=== PATIENT | female | born 1940 | race Caucasian/White ===

== ENCOUNTER 2017-09-09 07:26 | Inpatient (IN) ==
--- NOTE | 2017-09-09 07:36 | History & Physical Report ---
Date of Encounter: 09/09/17 Time of Encounter: 07:36 24 Hour HP Update - Instructions Instructions: If the History and Physical is less than 30 days old and was completed prior to A.M. admission and or procedure and has NOT been updated on calendar day of procedure please complete this update prior to performing procedure. - Update Patient reports changes in Medical Condition: No Changes in examination, assessment, or condition: No Changes in Medication: No Preop tests/diagnostics Reviewed: Yes Surgery Remains Indicated: Yes Consent for Planned Operative Procedure(s) Verified: Yes - Pre-Operative Checklist Preoperative Checklist Indicated: No Prophylactic Antibiotic Ordered: Yes Is VTE Prophylaxis Indicated?: Yes
--- NOTE | 2017-09-09 07:37 | Discharge Summary ---
Date of Encounter: 09/11/17 Time of Encounter: 07:03 - Discharge Diagnosis (1) Arthritis of right knee Priority: Primary Status: Chronic (2) Status post total right knee replacement Priority: Primary Status: Acute (3) Hypertension Priority: Secondary Status: Chronic Qualifiers: Hypertension type: unspecified Qualified Code(s): I10 - Essential (primary ) hypertension (4) Hyperlipidemia Priority: Secondary Status: Chronic Qualifiers: Hyperlipidemia type: unspecified Qualified Code(s): E78.5 - Hyperlipidemia , unspecified (5) Diabetes type 2, controlled Priority: Secondary Status: Chronic Qualifiers: Diabetes mellitus complication status: with unspecified complications Diabetes mellitus senior care insulin use: unspecified vermin exterminator insulin use status Qualified Code(s): E11.8 - Type 2 diabetes mellitus with unspecified complications (6) Obesity (BMI 30.0-34.9) Priority: Secondary Status: Chronic - Discharge Medications Prescriptions: Aspirin Enteric Coated [Aspirin EC] 325 mg PO BID #20 tablet. OxyCODONE Immed Rel [Roxicodone 5 MG] 5 mg PO Q4HR PRN #24 tablet PRN Reason: Pain Home Medications: Aspirin Enteric Coated [Aspirin EC] 325 mg PO BID #20 tablet. 09/09/17 [Rx] Cholecalciferol (Vitamin D3) [Vitamin D3] 10,000 unit PO SA 09/09/17 [History] Escitalopram [Lexapro] 10 mg PO DAILY 09/09/17 [History] OxyCODONE Immed Rel [Roxicodone 5 MG] 5 mg PO Q4HR PRN #24 tablet 09/09/17 [Rx] Simvastatin [Zocor] 80 mg PO HS 09/09/17 [History] Tramadol HCl [Ultram] 50 mg PO BID PRN 09/09/17 [History] Allergies/Adverse Reactions: 3 Allergy/AdvReac Type Severity Reaction Status Date / Time Penicillins [PCN] Allergy Redness of Verified 09/09/17 07:57 Skin Primary care physician: Sergio Price, - Patient Status Disposition: Transfer Inpatient Rehab Fac Condition: Good Functional capacity at discharge: uses cane/walker Overall status at discharge: patient is progressing back to baseline - Discharge Instructions Follow Up With: Sergio Price MD [Primary Care Provider] - - Hospital Course Hospital course: Ms. Dean is a 76 year old female Status post right total knee replacement. The patient had an uneventful postoperative course. They received antibiotics and physical therapy and were discharged in stable condition. There will follow -up in the office in 2 weeks. - Time Spent with Patient Total time spent providing and/or coordinating discharge services:
[2017-09-09] MEDS ORDERED: Clindamycin 900 MG/50 ML 900 MG/50 ML IV.SOLN IVPB ONE (07:58)
[2017-09-09] MEDS: Ringers Solution, Lactated 1,000 ML IVC SCH ×2 (08:00→11:15)
--- NOTE | 2017-09-09 08:18 | Anesthesia Evaluation PreOp ---
Date of Encounter: 09/09/17 Time of Encounter: 08:16 - Past History Planned Operation: Right Total Knee Arthroplasty Cardiac History: HTN, Hyperlipidemia Pulmonary History: Denies Any Significant HX SCHEME TECHNICIAN History: Denies Any Significant HX Other Medical History: Diabetes Type II Anesthesia History: No Prior Anesthetic Complications, Past Anesthesia (GB, Tubal, Tonsillectomy, Basal Cell) : No Alcohol Use: none Drug use: none Medications and Allergies Aspirin Enteric Coated [Aspirin EC] 325 mg PO BID #20 tablet.dr 09/09/17 [Rx] Aspirin [Lo-Dose Aspirin EC] 81 mg PO DAILY 09/09/17 [History] Cholecalciferol (Vitamin D3) [Vitamin D3] 10,000 unit PO SA 09/09/17 [History] Escitalopram [Lexapro] 10 mg PO DAILY 09/09/17 [History] OxyCODONE Immed Rel [Roxicodone 5 MG] 5 mg PO Q4HR PRN #24 tablet 09/09/17 [Rx] Simvastatin [Zocor] 80 mg PO HS 09/09/17 [History] Tramadol HCl [Ultram] 50 mg PO BID PRN 09/09/17 [History] 3 Allergy/AdvReac Type Severity Reaction Status Date / Time Penicillins [PCN] Allergy Redness of Verified 09/09/17 07:57 Skin - Meds/Allergy Pre-op Review Medications Reviewed: Yes Allergies Reviewed: Yes Beta Blockers on Current Med List: No Anesthesia Results - Labs Laboratory Tests 09/01/17 09/01/17 09/01/17 11:08 11:08 11:08 WBC 7.9 Hgb 13.2 Hct 40.0 Plt Count 219 INR 1.1 Sodium 144 Potassium 4.0 Chloride 106 Carbon Dioxide 32 H BUN 19 Creatinine 1.82 H - Imaging EKG: image reviewed (SR) Anesthesia Exam O2 Sat Height 1.65 m Weight 86.183 kg O2 Sat by Pulse Oximetry 96 Vital Signs Temp Pulse Resp BP Pulse Ox 97.8 F 66 16 153/75 96 09/09/17 07:51 09/09/17 07:51 09/09/17 07:51 09/09/17 07:51 09/09/17 07:51 Blood glucose: 139 Height: 5'5'' Weight: 190# NPO (# of Hours): > 8 hrs - HEENT Pupil (Motor): Pupils equal, EOMI Mallampati: III Teeth: Normal Oral Opening: Greater than 3 - SCHEME TECHNICIAN LOC: Oriented SCHEME TECHNICIAN Motor: Normal RUE, Normal LUE, Normal RLE, Normal LLE, Normal Face SCHEME TECHNICIAN Sensory: Normal: RUE, LUE, RLE, LLE, Face - Cardiac Rhythm: Regular Murmur: None JVD: No Carotid Bruit: No - Pulmonary Breath Sounds: bilateral Clear Respiratory Effort: Symmetrical Anesthesia Assess/Plan ASA Score: 3 Modified [place] Scale for Level of Consciousness: Cooperative, oriented, and tranquil Anesthetic Plan: General Autologous Blood: Yes Monitoring Plan: Standard Monitors Recovery Plan: PACU
[2017-09-09] MEDS ORDERED: Acetaminophen IV 1,000 MG/100 ML INFUS..BTL ONE (08:47)
[2017-09-09] MEDS ORDERED: Lidocaine/EPI 1:200k 2% PF 10 ML VIAL ONE (08:47)
[2017-09-09] MEDS ORDERED: *HR* Propofol 200 MG/20 ML VIAL IVP ONE (08:50)
[2017-09-09] MEDS ORDERED: *HR* FentaNYL (PF) 100 MCG/2 ML VIAL ONE (08:50)
[2017-09-09] MEDS ORDERED: Lidocaine -MPF 2% 2 ML VIAL ONE (08:51)
[2017-09-09] MEDS ORDERED: ROPIVACAINE HCL/PF 0.5% 30 ML VIAL ONE (09:46)
[2017-09-09] MEDS ORDERED: Ethanol\\Acetic Acid\\Na Ace\\Ben 1,000 ML IRRIG.SOLN IR ONE ×2 (09:54→10:03)
[2017-09-09] MEDS ORDERED: Ondansetron 4 MG/2 ML VIAL IVP PRN ×2 (10:19→12:47)
[2017-09-09] MEDS ORDERED: *HR* HYDROmorphone (PF) 1 MG/ML SYRINGE IVP PRN (10:19)
--- NOTE | 2017-09-09 10:23 | Anesthesia Procedures ---
Date of Encounter: 09/09/17 Time of Encounter: 10:10 Procedures: Anesthesia - Nerve Block Procedure Date: 09/09/17 Time: 10:10 Allergies/Adv Reactions: PCN Pre-op Diagnosis: right knee OA Surgical Procedure: right TKA Checklist: Correct Patient Identifier, Correct procedure, History checked Correct side: Right Blood Thinner: No Monitor Applied: EKG, BP, Pulse Oximetry Supplemental Oxygen via Nasal Cannula (L/min): 2 Sedation: Fentanyl (mcg): 100 Indication: Post Op Analgesia Pre-op Neuro Deficits: No Block Type: Femoral, Other (ipack / NIKA) Catheter placed: No Sterile Technique: Yes Ultrasound used: Yes Anatomy identified: Yes Visual spread of Local: Yes Neuro Stimulation: Yes (femoral only) Nerve Stimulator Range: 0.2 - 0.4 mA Blood on Needle Aspiration: No Smooth Injection of Local: Yes Pain with Injection of Local: No Prep: Chlorhexadine Needle: 22 x 50 mm Stimuplex, 21 x 100 mm Stimuplex Local: Ropivacaine (0.5% 30mL femoral), Other (decadron 8mg femoral, 0.25% bupivacaine + decadron 8mg (20mL ipack / 10mL NIKA)) Volume (cc): 60 Number of Attempts: 1 Complications: None/effective block Vitals: BP 119/76, HR 68, SpO2 97%, RR 16
[2017-09-09] MEDS ORDERED: Ondansetron 4 MG/2 ML VIAL ONE (10:35)
[2017-09-09] MEDS ORDERED: Dexamethasone 4 MG/ML VIAL ONE (10:35)
[2017-09-09] MEDS ORDERED: *HR* Magnesium Sulfate 1 GM/2 ML VIAL ONE (10:37)
[2017-09-09] MEDS ORDERED: Ketorolac 30 MG/ML VIAL ONE (11:21)
--- NOTE | 2017-09-09 11:41 | Orthopedic Operative Note ---
Date of procedure: 09/09/17 Pre-op diagnosis: Right knee arthritis Post-op diagnosis: same Procedure: Procedure: Right robotic-assisted Total knee replacement Estimated blood loss: 400 cc Hardware: Metal and polyethylene replacement. Pointblank Femur: 5 Tibia: 5 PS insert: 9 Patella: 39 Exam Under anesthesia: 8 degrees flexion contracture 4 degrees varus as calculated by the robot full flexion and no instability Procedural Notes: Grade 3 arthritic changes all 3 compartments. Operative procedure: The patient was brought to the operating room and placed on the operating room table. After general anesthesia was administered the operative knee was examined. Findings were noted in the exam under anesthesia. The operative extremity was prepped and draped in sterile surgical fashion. The patient received IV antibiotics prior to skin incision. A standard midline incision was made centered over the patella. The incision was made through the skin and subcutaneous tissue. A medial parapatellar tendon approach was performed. Care was taken to preserve tissue along the medial aspect of the patella. And to protect the patella tendon. The deep MCL was released off the medial tibia. The infra patella fat pad was excised. The patella was everted and cut was made at the level of the insertion of the quadriceps and patella tendon. The patella was sized to a 39 the guide was seated and the lug holes are drilled. Knee was brought into flexion. Patient noted to have a 3 arthritic changes all 3 compartments. Steinmann pins were placed in the tibia and the femur for the tibial and femoral arrays respectively. Checkpoints were also placed in the tibia and the femur for calculation purposes. The knee including the femur and the tibial registered. Osteophytes, ACL and PCL were excised at this point. Extension and flexion were assessed with a valgus stress components were adjusted on the computer to balance the knee. Femoral cuts were made first with robotic assistance, these included the anterior cut posterior cuts chamfer cuts. Tibial cut was then performed with robotic assistance as well. Bone fragments were removed, as well as the medial and lateral meniscus. The size 5 femoral guide was seated box cut was made lug holes are drilled. The size 5 tibial tray was seated and prepared with the fin cutter. Trial reduction with the 9 PS Estela revealed extension of 0 degree and full flexion. No varus valgus instability. Trial reduction revealed excellent patella tracking. All trial components were removed all bony surfaces were irrigated. Tibias press-fit followed by the femur PS Estela size9 was seated and secured patella. Patient had similar findings for motion and stability. The knee was then irrigated out with 2 L of pulse irrigation. The extensor mechanism was closed with #2 FiberWire suture and #2 PDS suture. The subcutaneous tissue was then irrigated and closed deep with #1 PDS suture superficially with 0 PDS suture and skin was closed with zip tie The patient was then placed in a sterile dressing and a postoperative brace extubated and transferred to recovery room in stable condition. Anesthesia: GETA Surgeon: Srikanth Mejia Was there an records assistant present: No Estimated blood loss (cc): 400 Condition: stable Disposition: PACU
[2017-09-09] MEDS: *HR* Labetalol 20 MG/4 ML SYRINGE IVP PRN ×2 (12:10→12:15)
--- NOTE | 2017-09-09 12:18 | Anesthesia Evaluation Post Op ---
Date of Encounter: 09/09/17 Time of Encounter: 12:17 - Vital Signs Vital Signs: Vital Signs/O2 Sat/Glucose, Most Recent Temp Pulse Resp BP Pulse Ox 97.1 F L 68 16 174/73 98 09/09/17 11:51 09/09/17 12:11 09/09/17 12:11 09/09/17 12:11 09/09/17 12:11 Blood Glucose* 151 - Lungs Lungs: Clear Ascult./Percussion - Airway Airway: Non-obstructed - Cardiovascular Regular Rate - Mental Status Mental Status: Asleep with brisk response to light stimulation - Pain Pain Scale: 0 (3 when arroused) Pain Scale used: Numeric (1 - 10) - Nausea Vomiting Nausea Vomiting: Not Present - Hydration Hydration: NPO - Discharge PostOp Status: Transfer Patient to floor
[2017-09-09 12:24] LABS: Hematocrit 37.3 % (35.3-44.9); Hemoglobin 12.3 g/dL (11.5-15.4)
[2017-09-09] MEDS ORDERED: MOM Conc 10 ML UD.LIQ PO PRN (12:47)
[2017-09-09] MEDS ORDERED: Temazepam 15 MG CAPSULE PO PRN (12:47)
[2017-09-09] MEDS ORDERED: Naloxone 0.4 MG/ML INJ IVP PRN (12:47)
[2017-09-09] MEDS ORDERED: *HR* OxyCODONE Immed Rel 5 MG TABLET PO PRN (12:47)
[2017-09-09] MEDS ORDERED: Clindamycin 900 MG/50 ML 900 MG/50 ML IV.SOLN IVPB SCH (12:47)
[2017-09-09] MEDS ORDERED: Sennosides 8.6 MG TABLET PO PRN (12:47)
[2017-09-09] MEDS ORDERED: *HR* Succinylcholine 200 MG/10 ML VIAL IVP ONE (13:18)
[2017-09-09] MEDS: Cholecalciferol (D-3) 1,000 UNIT TABLET PO SCH (13:58)
[2017-09-09] MEDS: *HR* HYDROmorphone (PF) 1 MG/ML SYRINGE IVP PRN (14:43)
[2017-09-09] MEDS: Clindamycin 900 MG/50 ML 900 MG/50 ML IV.SOLN IVPB SCH (17:35)
[2017-09-09] MEDS ORDERED: *HR* Enoxaparin 30 MG/0.3 ML SYRINGE SQ SCH ×2 (18:00)
[2017-09-10] MEDS: Clindamycin 900 MG/50 ML 900 MG/50 ML IV.SOLN IVPB SCH (02:14)
[2017-09-10 06:39] LABS: Hematocrit 33.4 % (35.3-44.9); Hemoglobin 10.9 g/dL (11.5-15.4)
[2017-09-10 06:40] LABS: Calcium 8.7 mg/dL (8.6-10.3); Potassium 4.9 mEq/L (3.5-5.1)
--- NOTE | 2017-09-10 07:33 | Orthopedics Progress Note ---
Date of Encounter: 09/10/17 Time of Encounter: 07:33 - Assessment and Plan (1) Arthritis of right knee Current Visit: Yes Status: Chronic (2) Status post total right knee replacement Current Visit: Yes Status: Acute (3) Hypertension Current Visit: Yes Status: Chronic Qualifiers: Hypertension type: unspecified Qualified Code(s): I10 - Essential (primary ) hypertension (4) Hyperlipidemia Current Visit: Yes Status: Chronic Qualifiers: Hyperlipidemia type: unspecified Qualified Code(s): E78.5 - Hyperlipidemia , unspecified (5) Diabetes type 2, controlled Current Visit: Yes Status: Chronic Qualifiers: Diabetes mellitus complication status: with unspecified complications Diabetes mellitus shelter 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 Afebrile vital signs stable. Operative extremity: Neurovascularly intact Dressing clean dry and intact Calves nontender Assessment and plan: Continue with postoperative care Hematocrit 33 Objective Vital signs: Vital Signs Temp Pulse Resp BP Pulse Ox 09/10/17 07:00 97.5 F L 69 18 123/72 93 09/10/17 05:03 97.7 F 69 14 125/73 95 09/10/17 00:40 97.6 F 67 14 124/62 94 09/09/17 20:15 97.7 F 75 16 137/64 100 09/09/17 15:40 97.7 F 69 16 111/48 99 09/09/17 14:40 97.7 F 71 16 142/58 99 09/09/17 13:40 97.8 F 65 16 125/58 100 09/09/17 13:10 97.8 F 68 16 141/62 100 09/09/17 12:40 97.6 F 65 14 151/74 100 09/09/17 12:31 67 14 164/73 98 09/09/17 12:21 97.5 F L 66 14 167/76 98 09/09/17 12:11 68 16 174/73 98 09/09/17 12:01 78 14 185/83 99 09/09/17 11:51 97.1 F L 73 18 185/85 98 09/09/17 10:23 67 16 170/73 99 09/09/17 10:12 68 18 175/80 99 09/09/17 10:02 63 18 189/80 99 09/09/17 07:51 97.8 F 66 16 153/75 96 Intake and Output 09/09/17 09/09/17 09/10/17 15:59 23:59 07:59 Intake Total 1000 / 1000 250 / 250 Output Total 400 / 400 250 / 250 Balance 600 / 600 0 / 0 Intake: IV Fluids 1000 / 1000 50 / 50 Lactated Ringers 1,000 ML @ 25 1000 / 1000 mls/hr IVC .Q24H [facility] Rx#: [id number] Cleocin Premix 900 MG/50 ML 900 50 / 50 mg In 50 ml @ 50 mls/hr IVPB Q8H [facility] Rx#:[id number] Oral 200 / 200 Output: Urine 250 / 250 Estimated Blood Loss 400 / 400 Other: Blood Glucose* 151 - Labs CBC & BMP: 09/10/17 05:30 09/10/17 05:30 Labs: Abnormal lab results Hgb 10.9 g/dL (11.5-15.4) L 09/10/17 05:30 Hct 33.4 % (35.3-44.9) L 09/10/17 05:30 BUN 30 mg/dL (8-23) H 09/10/17 05:30 Creatinine 2.21 mg/dL (0.60-1.20) H 09/10/17 05:30 Est GFR ( Amer) 26 (> 60) L 09/10/17 05:30 Est GFR (Non-Af Amer) 21 (> 60) L 09/10/17 05:30 Glucose 284 mg/dL (70-105) H 09/10/17 05:30 POC Glucose 139 (58-89) H 09/09/17 07:51 Calculated Osmolality 302 (280-300) H 09/10/17 05:30 - VTE Documentation of Mechanical Device: Venous foot pump, device Consult Discharge Plan - Plan Referrals: Sergio Price MD [Primary Care Provider] - Prescriptions: Aspirin Enteric Coated [Aspirin EC] 325 mg PO BID #20 tablet. OxyCODONKody Immed Rel [Roxicodone 5 MG] 5 mg PO Q4HR PRN #24 tablet PRN Reason: Pain
[2017-09-10] MEDS: Ringers Solution, Lactated 1,000 ML IVC SCH ×2 (10:17→15:29)
[2017-09-10] MEDS: Cholecalciferol (D-3) 1,000 UNIT TABLET PO SCH (10:18)
[2017-09-10] MEDS: *HR* OxyCODONE Immed Rel 5 MG TABLET PO PRN ×3 (10:26→23:36)
[2017-09-10] MEDS: *HR* Enoxaparin 30 MG/0.3 ML SYRINGE SQ SCH (17:09)
[2017-09-11] MEDS: *HR* HYDROmorphone (PF) 1 MG/ML SYRINGE IVP PRN (00:48)
[2017-09-11 03:52] LABS: Hematocrit 31.7 % (35.3-44.9); Hemoglobin 10.3 g/dL (11.5-15.4)
[2017-09-11 04:16] LABS: Calcium 8.6 mg/dL (8.6-10.3); Potassium 4.5 mEq/L (3.5-5.1)
[2017-09-11] MEDS: *HR* OxyCODONE Immed Rel 5 MG TABLET PO PRN ×3 (06:09→14:27)
--- NOTE | 2017-09-11 07:04 | Orthopedics Progress Note ---
Date of Encounter: 09/11/17 Time of Encounter: 07:04 - Assessment and Plan (1) Arthritis of right knee Current Visit: Yes Status: Chronic (2) Status post total right knee replacement Current Visit: Yes Status: Acute (3) Hypertension Current Visit: Yes Status: Chronic Qualifiers: Hypertension type: unspecified Qualified Code(s): I10 - Essential (primary ) hypertension (4) Hyperlipidemia Current Visit: Yes Status: Chronic Qualifiers: Hyperlipidemia type: unspecified Qualified Code(s): E78.5 - Hyperlipidemia , unspecified (5) Diabetes type 2, controlled Current Visit: Yes Status: Chronic Qualifiers: Diabetes mellitus complication status: with unspecified complications Diabetes mellitus longterm insulin use: unspecified buttermaker insulin use status Qualified Code(s): E11.8 - Type 2 diabetes mellitus with unspecified complications (6) Obesity (BMI 30.0-34.9) Current Visit: Yes Status: Chronic Subjective Interval history: Patient was seen this morning doing well without complaints. Afebrile vital signs stable. Operative extremity: Neurovascularly intact Dressing clean dry and intact Calves nontender Assessment and plan: Continue with postoperative care Hematocrit 31 discharged today Objective Vital signs: Vital Signs Temp Pulse Resp BP Pulse Ox 09/11/17 06:40 98.4 F 73 18 175/78 93 09/10/17 23:35 98.0 F 71 18 171/77 95 09/10/17 19:13 98.0 F 70 18 115/69 94 09/10/17 15:10 97.7 F 74 14 146/60 96 09/10/17 12:29 97.9 F 78 16 175/74 98 09/10/17 11:51 97.6 F 71 12 123/68 92 Intake and Output 09/10/17 09/10/17 09/11/17 15:59 23:59 07:59 Intake Total 360 / 360 150 / 150 120 / 120 Balance 360 / 360 150 / 150 120 / 120 Intake: Oral 360 / 360 150 / 150 120 / 120 Other: Meal Lunch Percent of Meal Consumed 60% # Voids 1 1 1 Blood Glucose* 283 - Labs CBC & BMP: 09/11/17 02:41 09/11/17 02:41 Labs: Abnormal lab results Hgb 10.3 g/dL (11.5-15.4) L 09/11/17 02:41 Hct 31.7 % (35.3-44.9) L 09/11/17 02:41 Carbon Dioxide 31 mEq/L (23-29) H 09/11/17 02:41 BUN 35 mg/dL (8-23) H 09/11/17 02:41 Creatinine 1.99 mg/dL (0.60-1.20) H 09/11/17 02:41 Est GFR ( Amer) 29 (> 60) L 09/11/17 02:41 Est GFR (Non-Af Amer) 24 (> 60) L 09/11/17 02:41 Glucose 156 mg/dL (70-105) H 09/11/17 02:41 POC Glucose 283 (58-89) H 09/10/17 12:25 - VTE Documentation of Mechanical Device: Venous foot pump, device Consult Discharge Plan - Plan Referrals: Sergio Price MD [Primary Care Provider] - Prescriptions: Aspirin Enteric Coated [Aspirin EC] 325 mg PO BID #20 tablet. OxyCODONE Immed Rel [Roxicodone 5 MG] 5 mg PO Q4HR PRN #24 tablet PRN Reason: Pain
[2017-09-11] MEDS: Cholecalciferol (D-3) 1,000 UNIT TABLET PO SCH (10:33)
[2017-09-11] MEDS: Ringers Solution, Lactated 1,000 ML IVC SCH (13:28)
[2017-09-11] MEDS: *HR* Enoxaparin 30 MG/0.3 ML SYRINGE SQ SCH (16:43)
[2017-09-12] MEDS: Ringers Solution, Lactated 1,000 ML IVC SCH (03:08)
[2017-09-12] MEDS: *HR* OxyCODONE Immed Rel 5 MG TABLET PO PRN ×2 (03:09→09:34)
[2017-09-12 05:47] LABS: Calcium 8.6 mg/dL (8.6-10.3); Potassium 4.5 mEq/L (3.5-5.1)
--- NOTE | 2017-09-12 06:36 | Orthopedics Progress Note ---
Date of Encounter: 09/12/17 Time of Encounter: 06:35 - Assessment and Plan (1) Arthritis of right knee Current Visit: Yes Status: Chronic (2) Status post total right knee replacement Current Visit: Yes Status: Acute (3) Hypertension Current Visit: Yes Status: Chronic Qualifiers: Hypertension type: unspecified Qualified Code(s): I10 - Essential (primary ) hypertension (4) Hyperlipidemia Current Visit: Yes Status: Chronic Qualifiers: Hyperlipidemia type: unspecified Qualified Code(s): E78.5 - Hyperlipidemia , unspecified (5) Diabetes type 2, controlled Current Visit: Yes Status: Chronic Qualifiers: Diabetes mellitus complication status: with unspecified complications Diabetes mellitus alf insulin use: unspecified buttermaker helper insulin use status Qualified Code(s): E11.8 - Type 2 diabetes mellitus with unspecified complications (6) Obesity (BMI 30.0-34.9) Current Visit: Yes Status: Chronic Subjective Interval history: Patient was seen this morning doing well without complaints. Afebrile vital signs stable. Operative extremity: Neurovascularly intact Dressing clean dry and intact Calves nontender Assessment and plan: Continue with postoperative care discharged today Objective Vital signs: Vital Signs Temp Pulse Resp BP Pulse Ox 09/12/17 05:03 99.4 F 76 14 186/94 94 09/12/17 01:44 79 182/83 09/12/17 00:37 99.1 F 81 15 190/78 93 09/11/17 21:05 98.5 F 93 17 128/68 96 09/11/17 14:28 98.7 F 77 18 168/76 94 09/11/17 11:17 99.0 F 75 16 149/73 93 09/11/17 06:40 98.4 F 73 18 175/78 93 Intake and Output 09/11/17 09/11/17 09/12/17 15:59 23:59 07:59 Intake Total 220 / 220 200 / 200 1000 / 1000 Output Total 300 / 300 Balance 220 / 220 200 / 200 700 / 700 Intake: IV Fluids 1000 / 1000 Lactated Ringers 1,000 ML @ 75 1000 / 1000 mls/hr IVC .[id number] [facility] Rx#: [id number] Oral 220 / 220 200 / 200 Output: Urine 300 / 300 Other: Meal Lunch Dinner Percent of Meal Consumed 50% 50% Stool Size Small Stool Consistency liquid Stool Color Brown # Voids 2 1 1 # Bowel Movements 1 Blood Glucose* 211 175 - Labs CBC & BMP: 09/11/17 02:41 09/12/17 04:49 Labs: Abnormal lab results Hgb 10.3 g/dL (11.5-15.4) L 09/11/17 02:41 Hct 31.7 % (35.3-44.9) L 09/11/17 02:41 BUN 32 mg/dL (8-23) H 09/12/17 04:49 Creatinine 1.76 mg/dL (0.60-1.20) H 09/12/17 04:49 Est GFR ( Amer) 34 (> 60) L 09/12/17 04:49 Est GFR (Non-Af Amer) 28 (> 60) L 09/12/17 04:49 Glucose 191 mg/dL (70-105) H 09/12/17 04:49 POC Glucose 169 (58-89) H 09/11/17 19:40 - VTE Documentation of Mechanical Device: Venous foot pump, device Consult Discharge Plan - Plan Referrals: Sergio Price MD [Primary Care Provider] - Prescriptions: Aspirin Enteric Coated [Aspirin EC] 325 mg PO BID #20 tablet. OxyCODONE Immed Rel [Roxicodone 5 MG] 5 mg PO Q4HR PRN #24 tablet PRN Reason: Pain
[2017-09-12 07:31] VITALS: BP 150/73
[2017-09-12] MEDS: Cholecalciferol (D-3) 1,000 UNIT TABLET PO SCH (09:26)
--- NOTE | 2017-09-12 11:29 | Physician Discharge Referral ---
ExtendedCare Referral Info Transfer To: [facility] Provider in Charge: Dr. Srikanth Mejia - Diagnosis (1) Status post total right knee replacement Priority: Primary Status: Acute (2) Arthritis of right knee Priority: Primary Status: Chronic (3) Diabetes type 2, controlled Priority: Secondary Status: Chronic (4) Hyperlipidemia Priority: Secondary Status: Chronic (5) Hypertension Priority: Secondary Status: Chronic (6) Obesity (BMI 30.0-34.9) Priority: Secondary Status: Chronic Expected Duration of Placement: less than 30 days Prognosis: Good Aware of Diagnosis: Patient Aware of Prognosis: Patient - Transfer Medications Prescriptions: OxyCODONE Immed Rel [Roxicodone 5 MG] 5 mg PO Q4HR PRN #24 tablet PRN Reason: Pain Aspirin Enteric Coated [Aspirin EC] 325 mg PO BID #20 tablet. Home Medications: Aspirin Enteric Coated [Aspirin EC] 325 mg PO BID #20 tablet. 09/09/17 [Rx] Cholecalciferol (Vitamin D3) [Vitamin D3] 10,000 unit PO SA 09/09/17 [History] Escitalopram [Lexapro] 10 mg PO DAILY 09/09/17 [History] OxyCODONE Immed Rel [Roxicodone 5 MG] 5 mg PO Q4HR PRN #24 tablet 09/09/17 [Rx] Simvastatin [Zocor] 80 mg PO HS 09/09/17 [History] Tramadol HCl [Ultram] 50 mg PO BID PRN 09/09/17 [History] Allergies/Adverse Reactions: 3 Allergy/AdvReac Type Severity Reaction Status Date / Time Penicillins [PCN] Allergy Redness of Verified 09/09/17 07:57 Skin - Respiratory Orders Smoking Cessation: Smoking cessation has been advised. For more information, call the [place] Tobacco Quit Line at 3-523-VYGJ-NOW. - Ancillary Orders May use pressure relief devices daily prn, May go on GEGE w/family/respon green party w /meds at nurse discretion PRN, May consult with Dentist, Coil Tier, Blocker Hand PRN - Mobility Orders Chair, Ambulate - Rehabiliation Orders Rehab Potential: Good Rehab Orders: Evaluation for Physical Therapy, Evaluation for Occupational Therapy Other: Total Knee replacement Precautions x 6 weeks Apply cold therapy wrap 3-6x/day for 20 minutes at a time. Encourage ambulation throughout the day and incentive spirometer 10x/hour. Elevate affected extremity above heart as tolerated. Brace: Wear knee immobilizer at night x 2 weeks. - Treatments Skin tear care topically daily PRN per policy List/Other: Opsite placed. Keep dressing intact until first follow up appointment. If > 50% saturated, notify office, remove dressing and place appropriate dressing back in place. Leave Zipline intact. Opsite dressing is water resistant, not water- proof. OK to shower, but do not get dressing wet. - Diet Orders Regular CERTIFICATION: I certify that the transfer of the above named patient to an Extended Care Facility is necessary for the continuing treatment of the diagnosis listed. The above information is true and accurate reflection of patient's current condition. Confidential - Redisclosure prohibited without a patient's written consent.
== END 2017-09-12 11:14 | DRG 470 ==
LOC: SAMDAY 07:26 → 3NENU 07:34
PROVIDERS: ADMIT Orthopaedic Surgery; ATTEND Orthopaedic Surgery

== ENCOUNTER 2021-01-29 19:45 | Observation (INO) ==
[2021-01-30] MEDS ORDERED: Naloxone 0.4 MG/ML INJ IVP PRN (04:02)
[2021-01-30 05:06] LABS: Calcium 8.8 mg/dL (8.6-10.3); Potassium 5.5 mEq/L (3.5-5.1)
[2021-01-30] MEDS ORDERED: D5% in Water 1,000 ML IVC PRN (06:29)
[2021-01-30] MEDS ORDERED: *HR* Dextrose 50 % in Water (Vial) 50 ML VIAL IVP PRN (06:29)
[2021-01-30] MEDS ORDERED: Dextrose Gel 15 GM/37.5 ML TUBE PO PRN ×2 (06:29)
[2021-01-30] MEDS: Insulin LISPRO 300 UNITS/3 ML VIAL SUBQ SCH ×4 (09:00→21:26)
[2021-01-30] MEDS: DilTIAZem CD (24hr) 180 MG CAP.ER.24H PO SCH (09:04)
[2021-01-30] MEDS: 0.9 % Sodium Chloride 1,000 ML IVC SCH ×2 (09:05→21:26)
[2021-01-30 10:38] LABS: Basophils % 0.3 %; Eosinophils % 0.1 %; Red Cell Distribution Width 12.4 % (11.5-14.5)
[2021-01-30 10:41] LABS: Basophils # 0.1 K/mcL (0.0-0.2); Hematocrit 44.3 % (35.3-44.9); Hemoglobin 13.8 g/dL (11.5-15.4); Immature Granulocytes % 3.3 % (0-4); Lymphocytes # 0.6 K/mcL (0.6-4.6); Lymphocytes % 3.7 %; Mean Corpuscular HGB Conc 31.2 g/dL (31.6-35.5); Mean Corpuscular Hemoglobin 29.7 pg (28.0-33.3); Mean Corpuscular Volume 95.5 fL (83.0-100.0); Mean Platelet Volume 10.1 fL (9.4-12.4); Monocytes # 0.7 K/mcL (0.0-1.3); Monocytes % 4.4 %; Platelet Count 102 K/mcL (140-400); Red Blood Count 4.64 M/mcL (3.82-4.97); Segmented Neutrophils % 88.2 %; White Blood Count 15.6 K/mcL (4.3-11.1)
[2021-01-30 10:43] LABS: Neutrophils # 13.8 K/mcL (1.6-8.9)
[2021-01-30 10:44] LABS: Calcium 9.2 mg/dL (8.6-10.3); Magnesium 2.4 mg/dL (1.6-2.6); Phosphorous 3.5 mg/dL (2.7-4.5); Potassium 5.3 mEq/L (3.5-5.1)
[2021-01-30] MEDS ORDERED: *HR* Dextrose 50 % in Water (Vial) 50 ML VIAL IVP ONE (11:56)
[2021-01-30] MEDS ORDERED: Insulin Human Regular 10 UNIT in 0.9 % Sodium Chloride 10 ML IV ONE (11:56)
[2021-01-30] MEDS: *HR* Heparin 5,000 UNIT/ML VIAL SQ SCH ×2 (12:41→21:45)
[2021-01-31] MEDS: 0.9 % Sodium Chloride 1,000 ML IVC SCH ×2 (00:33→12:06)
[2021-01-31 05:47] LABS: Eosinophils % 0.9 %; Red Cell Distribution Width 12.6 % (11.5-14.5)
[2021-01-31 05:50] LABS: Basophils % 0.3 %; Eosinophils # 0.1 K/mcL (0.0-0.6); Hematocrit 37.6 % (35.3-44.9); Hemoglobin 12.3 g/dL (11.5-15.4); Immature Granulocytes % 3.3 % (0-4); Immature Platelets 2.7 % (1.1-6.1); Lymphocytes % 9.4 %; Mean Corpuscular HGB Conc 32.7 g/dL (31.6-35.5); Mean Corpuscular Hemoglobin 31.1 pg (28.0-33.3); Mean Corpuscular Volume 94.9 fL (83.0-100.0); Mean Platelet Volume 9.9 fL (9.4-12.4); Monocytes # 0.5 K/mcL (0.0-1.3); Monocytes % 4.5 %; Neutrophils # 8.5 K/mcL (1.6-8.9); Red Blood Count 3.96 M/mcL (3.82-4.97); Segmented Neutrophils % 81.6 %; White Blood Count 10.4 K/mcL (4.3-11.1)
[2021-01-31 05:54] LABS: Platelet Count 88 K/mcL (140-400)
[2021-01-31] MEDS: *HR* Heparin 5,000 UNIT/ML VIAL SQ SCH ×3 (06:04→21:54)
[2021-01-31 06:11] LABS: Calcium 7.9 mg/dL (8.6-10.3); Potassium 4.6 mEq/L (3.5-5.1)
[2021-01-31] MEDS: Insulin LISPRO 300 UNITS/3 ML VIAL SUBQ SCH ×4 (07:19→21:55)
[2021-01-31] MEDS: DilTIAZem CD (24hr) 180 MG CAP.ER.24H PO SCH (07:28)
[2021-02-01] MEDS: *HR* Heparin 5,000 UNIT/ML VIAL SQ SCH (05:39)
[2021-02-01] MEDS: 0.9 % Sodium Chloride 1,000 ML IVC SCH ×2 (05:39→07:16)
[2021-02-01 06:03] LABS: Basophils % 0.3 %; Eosinophils # 0.1 K/mcL (0.0-0.6); Eosinophils % 1.2 %; Hematocrit 38.5 % (35.3-44.9); Hemoglobin 12.3 g/dL (11.5-15.4); Immature Granulocytes % 3.8 % (0-4); Immature Platelets 2.8 % (1.1-6.1); Lymphocytes # 1.2 K/mcL (0.6-4.6); Lymphocytes % 13.6 %; Mean Corpuscular HGB Conc 31.9 g/dL (31.6-35.5); Mean Corpuscular Hemoglobin 30.6 pg (28.0-33.3); Mean Corpuscular Volume 95.8 fL (83.0-100.0); Mean Platelet Volume 10.2 fL (9.4-12.4); Monocytes # 0.4 K/mcL (0.0-1.3); Monocytes % 4.1 %; Neutrophils # 6.9 K/mcL (1.6-8.9); Platelet Count 80 K/mcL (140-400); Red Blood Count 4.02 M/mcL (3.82-4.97); Red Cell Distribution Width 12.9 % (11.5-14.5)
[2021-02-01 06:22] LABS: Calcium 8.1 mg/dL (8.6-10.3); Magnesium 1.8 mg/dL (1.6-2.6); Phosphorous 2.1 mg/dL (2.7-4.5); Potassium 4.2 mEq/L (3.5-5.1)
[2021-02-01] MEDS: Insulin LISPRO 300 UNITS/3 ML VIAL SUBQ SCH ×4 (07:12→20:13)
[2021-02-01] MEDS: DilTIAZem CD (24hr) 180 MG CAP.ER.24H PO SCH (07:49)
[2021-02-02 08:08] LABS: Hemoglobin 11.9 g/dL (11.5-15.4); Immature Granulocytes % 4.1 % (0-4)
[2021-02-02 08:10] LABS: Basophils % 0.3 %; Eosinophils # 0.1 K/mcL (0.0-0.6); Eosinophils % 1.3 %; Hematocrit 37.7 % (35.3-44.9); Immature Platelets 3.6 % (1.1-6.1); Lymphocytes # 1.1 K/mcL (0.6-4.6); Lymphocytes % 12.1 %; Mean Corpuscular HGB Conc 31.6 g/dL (31.6-35.5); Mean Corpuscular Hemoglobin 30.4 pg (28.0-33.3); Mean Corpuscular Volume 96.4 fL (83.0-100.0); Mean Platelet Volume 10.1 fL (9.4-12.4); Monocytes # 0.5 K/mcL (0.0-1.3); Neutrophils # 6.9 K/mcL (1.6-8.9); Red Blood Count 3.91 M/mcL (3.82-4.97); Red Cell Distribution Width 12.9 % (11.5-14.5); Segmented Neutrophils % 77.2 %; White Blood Count 8.9 K/mcL (4.3-11.1)
[2021-02-02 08:12] LABS: Platelet Count 84 K/mcL (140-400)
[2021-02-02] MEDS: Insulin LISPRO 300 UNITS/3 ML VIAL SUBQ SCH ×3 (08:38→18:12)
[2021-02-02] MEDS: DilTIAZem CD (24hr) 180 MG CAP.ER.24H PO SCH (08:40)
[2021-02-02 08:45] LABS: Calcium 8.5 mg/dL (8.6-10.3); Magnesium 1.7 mg/dL (1.6-2.6); Phosphorous 1.5 mg/dL (2.7-4.5); Potassium 4.1 mEq/L (3.5-5.1)
[2021-02-02 10:14] VITALS: BP 161/78
[2021-02-02 14:43] LABS: Influenza A PCR Negative (Negative); Influenza B PCR Negative (Negative); Resp. Syncytial Virus PCR Negative (Negative)
[2021-02-02 14:45] LABS: SARS-CoV-2 by PCR (In House) Negative (Negative)
== END 2021-02-02 18:34 ==
LOC: 2ANU → SUATTDRO 01-30 00:06
PROVIDERS: ADMIT Internal Medicine; ATTEND Student in an Organized Health Care Education/Training Program